=== PATIENT | male | born 1960 | race African-American/Black ===

== ENCOUNTER 2018-10-31 18:40 | Inpatient (IN) | payer MEDICARE, OTHER ==
[~2018-10-31] VITALS: Ht 170.2 cm; Wt 106.8 kg
[2018-10-31 19:37] LABS: HEMATOCRIT 43.8 % (42.0-54.0); HEMOGLOBIN 14.1 g/dL (13.5-17.5); MCH 23.7 pg (26.0-34.0); MCHC 32.2 g/dL (31.0-37.0); MCV 73.6 fL (80.0-100.0); MEAN PLATELET VOLUME 10.2 fL (7.4-10.4); PLATELET COUNT 200 10x3/uL (130-400); RBC 5.95 10x6/uL (4.20-6.10); RDW 14.8 % (11.5-14.5); WBC 9.4 10x3/uL (4.8-10.8)
[2018-10-31 19:51] LABS: INR 0.98 (0.85-1.17); PROTIME 12.5 SECONDS (11.6-15.0)
[2018-10-31 19:59] LABS: ALKALINE PHOSPHATASE 55 U/L (46-116); ALT (SGPT) 25 U/L (10-68); BILIRUBIN - TOTAL 0.23 mg/dL (0.2-1.3); CALC OSMOLALITY 285 mosm/kg (275-300); CALCIUM 8.9 mg/dL (8.5-10.1); CARBON DIOXIDE 20.3 mmol/L (21.0-32.0); CHLORIDE - SERUM 103 mmol/L (98-107); CREATININE - SERUM 1.5 mg/dL (0.6-1.3); GLUCOSE 144 mg/dL (74-106); POTASSIUM - SERUM 3.7 mmol/L (3.5-5.1); PROTEIN - SERUM 8.1 g/dL (6.4-8.2); SODIUM 141 mmol/L (136-145); UREA NITROGEN 19 mg/dL (7-18); eGFR NON AFRICAN AMERICAN 51 mL/min (90-120)
[2018-10-31 20:11] LABS: CKMB 0.6 U/L (0.0-3.6); CREATINE KINASE 179 UL (21-232); PRO BNP 112 pg/mL (0-125)
[2018-10-31 20:14] LABS: TROPONIN-I < 0.017 ng/mL (0.000-0.060)
[2018-10-31 20:42] LABS: EOSINOPHILS 2 % (0-7); LYMPHOCYTES 46 % (15-50); MONOCYTES 2 % (2-11); NEUTROPHILS 50 % (40-80); PLATELET ESTIMATE NORMAL
[2018-10-31 21:30] VITALS: BP 142/74
--- NOTE | 2018-10-31 21:50 | NUR ---
PT REPORTS HE DRANK ALL OF THE ORAL CONTRAST, RADIOLOGY CONTACTED AND INFORMED.
--- NOTE | 2018-10-31 22:19 | NUR ---
PT AMBULATED TO RESTROOM INDEPENDENTLY.
[2018-10-31 23:09] LABS: APPEARANCE CLEAR (CLEAR); BILIRUBIN NEGATIVE (NEGATIVE); COLOR YELLOW (YELLOW); GLUCOSE NEGATIVE (NEGATIVE); KETONE NEGATIVE (NEGATIVE); NITRITE NEGATIVE (NEGATIVE); PROTEIN NEGATIVE (NEGATIVE); SPECIFIC GRAVITY 1.005 (1.005-1.020); UROBILINOGEN NORMAL (NORMAL)
--- NOTE | 2018-11-01 00:18 | NUR ---
PT ARRIVED ON UNIT VIA WHEELCHAIR ESCORTED BY PASSENGER TIRE BUILDER AND SPOUSE. ORIENTED TO ROOM AND CALL LIGHT. BED ALARM IN USE. IV IN RIGHT AC SALINE LOCKED.
[2018-11-01] MEDS ORDERED: ZANTAC300 MG PO (00:19)
--- NOTE | 2018-11-01 00:30 | NUR ---
TELEMETRY PLACED ON PT PER ORDER. CURRENTLY READING 85 SR. PLACED O2 ON PT PER ORDER. WILL CONTINUE TO MONITOR FOR NEEDS.
[2018-11-01 01:28] VITALS: BP 197/97; Ht 170.2 cm; Wt 106.8 kg
--- NOTE | 2018-11-01 02:30 | NUR ---
ADMISSION ASSESSMENT AND HISTORY COMPLETE.
--- NOTE | 2018-11-01 02:31 | NUR ---
REPLACED ALL TELEMETRY PADS...PT RESTLESS AND DISLODGED.
[2018-11-01 04:00] VITALS: BP 151/73
--- NOTE | 2018-11-01 07:37 | NUR ---
PT DISORIENTED TO SITUATION. REPORTING HEADACHE 12/17, WILL MONITOR. IV TO RIGHT AC, SALINE LOCKED. BREATH SOUNDS CLEAR BILAT, 2L O2 PER NC. TELEMETRY IN PLACE. FAMILY AT BEDSIDE. BED LOW, CALL LIGHT IN REACH. NO OTHER NEEDS AT THIS TIME.
[2018-11-01 09:00] VITALS: BP 152/81
[2018-11-01 13:51] LABS: BASOPHILS 0.2 % (0-2); EOSINOPHILS 0.7 % (0-7); HEMATOCRIT 41.4 % (42.0-54.0); HEMOGLOBIN 13.5 g/dL (13.5-17.5); IMMATURE GRANULOCYTES 0.2 % (0-5); LYMPHOCYTES 27.4 % (15-50); MCH 23.9 pg (26.0-34.0); MCHC 32.6 g/dL (31.0-37.0); MCV 73.1 fL (80.0-100.0); MEAN PLATELET VOLUME 10.5 fL (7.4-10.4); MONOCYTES 4.2 % (2-11); NEUTROPHILS 67.3 % (40-80); PLATELET COUNT 203 10x3/uL (130-400); RBC 5.66 10x6/uL (4.20-6.10); RDW 14.9 % (11.5-14.5)
[2018-11-01 14:18] LABS: ALBUMIN 3.9 g/dL (3.4-5.0); ALKALINE PHOSPHATASE 50 U/L (46-116); ALT (SGPT) 31 U/L (10-68); BILIRUBIN - TOTAL 0.39 mg/dL (0.2-1.3); CALCIUM 8.8 mg/dL (8.5-10.1); CARBON DIOXIDE 22.6 mmol/L (21.0-32.0); CHLORIDE - SERUM 104 mmol/L (98-107); CKMB 1.1 U/L (0.0-3.6); CREATININE - SERUM 1.2 mg/dL (0.6-1.3); GLUCOSE 114 mg/dL (74-106); POTASSIUM - SERUM 3.7 mmol/L (3.5-5.1); PRO BNP 168 pg/mL (0-125); PROTEIN - SERUM 7.3 g/dL (6.4-8.2); SODIUM 141 mmol/L (136-145); TROPONIN-I < 0.017 ng/mL (0.000-0.060); eGFR NON AFRICAN AMERICAN 66 mL/min (90-120)
[2018-11-01 14:22] LABS: CALC OSMOLALITY 281 mosm/kg (275-300); CREATINE KINASE 542 UL (21-232); UREA NITROGEN 13 mg/dL (7-18)
[2018-11-01 14:44] VITALS: BP 163/76
[2018-11-01 18:20] VITALS: BP 176/75
[2018-11-01 18:55] LABS: CKMB 0.9 U/L (0.0-3.6); TROPONIN-I 0.021 ng/mL (0.000-0.060)
[2018-11-01 18:56] LABS: CREATINE KINASE 1122 UL (21-232)
--- NOTE | 2018-11-01 19:00 | NUR ---
BEDSIDE REPORT RECEIVED AND CARE OF PT ASSUMED. PT LYING IN SUPINE POSITION VISITING WITH SPOUSE. IV IN RIGHT AC SALINE LOCKED. TELEMETRY IN PLACE AND READING SR AT THIS ASSESSMENT. WILL MONITOR FOR NEEDS.
[2018-11-01 20:00] VITALS: BP 186/90
[2018-11-02] VITALS: BP 142/82
[2018-11-02 01:28] LABS: BASOPHILS 0.1 % (0-2); EOSINOPHILS 1.4 % (0-7); HEMATOCRIT 40.1 % (42.0-54.0); HEMOGLOBIN 13.1 g/dL (13.5-17.5); IMMATURE GRANULOCYTES 0.4 % (0-5); LYMPHOCYTES 37.1 % (15-50); MCH 23.9 pg (26.0-34.0); MCHC 32.7 g/dL (31.0-37.0); MEAN PLATELET VOLUME 10.5 fL (7.4-10.4); MONOCYTES 4.8 % (2-11); NEUTROPHILS 56.2 % (40-80); PLATELET COUNT 204 10x3/uL (130-400); RBC 5.49 10x6/uL (4.20-6.10); RDW 14.9 % (11.5-14.5); WBC 11.2 10x3/uL (4.8-10.8)
[2018-11-02 01:53] LABS: ALBUMIN 3.6 g/dL (3.4-5.0); ALKALINE PHOSPHATASE 49 U/L (46-116); ALT (SGPT) 28 U/L (10-68); BILIRUBIN - TOTAL 0.25 mg/dL (0.2-1.3); CALC OSMOLALITY 284 mosm/kg (275-300); CALCIUM 8.6 mg/dL (8.5-10.1); CARBON DIOXIDE 25.3 mmol/L (21.0-32.0); CHLORIDE - SERUM 105 mmol/L (98-107); CKMB 1.2 U/L (0.0-3.6); CREATININE - SERUM 1.2 mg/dL (0.6-1.3); GLUCOSE 124 mg/dL (74-106); POTASSIUM - SERUM 3.6 mmol/L (3.5-5.1); PROTEIN - SERUM 7.2 g/dL (6.4-8.2); SODIUM 142 mmol/L (136-145); UREA NITROGEN 15 mg/dL (7-18); eGFR NON AFRICAN AMERICAN 66 mL/min (90-120)
[2018-11-02 02:00] LABS: CREATINE KINASE 2400 UL (21-232)
--- NOTE | 2018-11-02 08:07 | NUR ---
PT IS RESTING IN BED WITH EYES CLOSED. RESPIRATIONS ARE EVEN AND UNLABORED. PT IS EASILY AROUSED WITH VERBAL STIMULATION. PT WITH O2 VIA NC @ 2L. PT DENIES PRESENCE OF PAIN. PT IS ORIENTED X 4. PT DENIES FURTHER NEEDS. BED IS IN THE LOWEST POSITION. CALL LIGHT AND BEDSIDE TABLE ARE WITHIN REACH. WILL CONT TO MONITOR.
[2018-11-02 09:41] VITALS: BP 152/86
[2018-11-02 14:08] VITALS: BP 154/87
[2018-11-02 18:25] VITALS: BP 169/98
--- NOTE | 2018-11-02 18:41 | NUR ---
PT IS RESTING IN BED WITH EYES OPEN. RESPIRATIONS ARE EVEN AND UNLABORED. PT IS C/O COUGHING AND SLIGHT PAIN THAT PT DESCRIBES CHRONIC. PAGE PLACED TO GEOMATICS PROFESSOR DR FOR ORDERS FOR MEDICATION TO HELP WITH SXS. PT INFORMED. BED IS IN THE LOWEST POSITION. CALL LIGHT AND BEDSIDE TABLE ARE WITHIN REACH. PT AND PT FAMILY MEMBER DENIES FURTHER NEEDS AT THIS TIME.
--- NOTE | 2018-11-02 19:00 | NUR ---
REPORT RECEIVED AND CARE OF PT ASSUMED. PT LYING IN LOW HELLER'S POSITION VISITING WITH FAMILY MEMBERS. O2 IN USE VIA NC AT 2L. TELEMETRY IN USE AND READING SB AT THIS ASSESSMENT. WILL MONITOR FOR NEEDS.
--- NOTE | 2018-11-02 19:50 | NUR ---
PT C/O FREQUENT ANNOYING COUGH AND PERSISTENT CHRONIC ACHES AND IS REQUESTING MEDICATIONS FOR RELIEF OF SXS. DR FRANCIS NOTIFIED OF PT REQUEST. PRDERS RECD ARE ROBITUSSIN WITH CODEIN 1-2 TSP Q6H PRN FOR THE COUGH AND NORCO 5MG PO [id number] PRN. WILL PLACE ORDERS AND NOTIFY SOIL CONSERVATION TEACHER NURSE.
--- NOTE | 2018-11-02 20:17 | NUR ---
GAVE NORCO 5 PO PER REQUEST FOR CHRONIC BACK PAIN, PER NEW ORDER. WILL MONITOR FOR EFFECTIVENESS.
--- NOTE | 2018-11-02 21:24 | NUR ---
GAVE ROBITISSIN W/ CODEINE COUGH MED PER REQUEST FOR COUGH, PER NEW ORDER. WILL MONITOR FOR EFFECTIVENESS.
[2018-11-03] VITALS: BP 170/84
[2018-11-03 04:00] VITALS: BP 155/86
[2018-11-03 07:27] LABS: BASOPHILS 0.2 % (0-2); EOSINOPHILS 1.9 % (0-7); HEMATOCRIT 40.5 % (42.0-54.0); IMMATURE GRANULOCYTES 0.4 % (0-5); LYMPHOCYTES 36.4 % (15-50); MCH 23.7 pg (26.0-34.0); MCHC 32.1 g/dL (31.0-37.0); MCV 73.9 fL (80.0-100.0); MEAN PLATELET VOLUME 10.2 fL (7.4-10.4); NEUTROPHILS 55.1 % (40-80); PLATELET COUNT 197 10x3/uL (130-400); RBC 5.48 10x6/uL (4.20-6.10); RDW 15.2 % (11.5-14.5); WBC 9.8 10x3/uL (4.8-10.8)
[2018-11-03 07:35] LABS: ALBUMIN 3.4 g/dL (3.4-5.0); ANION GAP 12.4 mmol/L (8-16); BILIRUBIN - TOTAL 0.31 mg/dL (0.2-1.3); CALCIUM 8.4 mg/dL (8.5-10.1); CARBON DIOXIDE 26.5 mmol/L (21.0-32.0); CREATININE - SERUM 1.1 mg/dL (0.6-1.3); POTASSIUM - SERUM 3.9 mmol/L (3.5-5.1)
[2018-11-03 08:23] VITALS: BP 144/75
--- NOTE | 2018-11-03 09:00 | NUR ---
PATIENT IN BED WATCHING TV WITH NO COMPLAINTS OR SIGNS OF DISTRESS. IV INTACT. FAMILY AT BEDSIDE. CALL LIGHT WITHIN REACH.
[2018-11-03] MEDS ORDERED: LISINOPRIL20 MG PO (12:01)
[2018-11-03 12:16] VITALS: BP 173/85
--- NOTE | 2018-11-03 13:09 | MORECARE ---
CASE MANAGEMENT DISCHARGE SUMMARY PATIENT: DARRYN TRAMMELL UNIT: [id number] ADM DATE: 11/02/18 AGE: 58 : [birth year] SEX: M ROOM/BED: D.2228 AUTHOR: DELBERT,DOC PHYSICIAN: REFERRING PHYSICIAN: ARABELLA FRIAS MD DATE OF SERVICE: 11/03/18 Discharge Plan Patient Name: DARRYN TRAMMELL Facility: [facility]:[place] : 1960 Planned Disposition: Home Anticipated Discharge Date: 11/03/18 Discharge Date: Expected LOS: 1 Initial Reviewer: [email or web address] Initial Review Date: 11/03/2018 Generated: 11/03/18 2:09 pm Comments DCP- Discharge Planning Updated by [email or web address]: Ila Astorga on 11/03/18 12:[address] Patient Name: DARRYN TRAMMELL Admission Status: ER Accout number: [id number] Admission Date: 11-02-2018 : 1960 Admission Diagnosis: Attending: ARABELLA FRIAS Current LOS: 1 Anticipated DC Date: 11-03-2018 Planned Disposition: Home Primary Insurance: MEDICARE A & B Discharge Planning Comments: CM met with patient to discuss discharge planning, his is in the room. He lives with his . He is independent with all ADL's and AIDL's. His will take him home today on discharge. He declines need for home health or DME. He states he has a cane and walker but does not use them. No needs identified. CM will continue to follow and assist with discharge planning/needs. Instructional Resource Teacher: Ila Astorga DCPIA - Discharge Planning Initial Assessment Updated by [email or web address]: Ila Astorga on 11/03/18 1:05 pm * Is the patient Alert and Oriented? Yes * How many steps to enter\exit or inside your home? 1flight/1f * PCP Dr Shabbir Bass - [place] Dr. Luis at [facility] in [place] * Pharmacy [facility] * Preadmission Environment Home with Family * ADLs Independent * Equipment Cane Walker * List name and contact numbers for known caregivers / representatives who currently or will assist patient after discharge: Valerie - - [phone] * Verbal permission to speak to the caregivers and representatives has been obtained from the patient. Yes * Community resources currently utilized None * Additional services required to return to the preadmission environment? No * Can the patient safely return to the preadmission environment? Yes * Has this patient been hospitalized within the prior 30 days at any hospital? No Patient Name: DARRYN TRAMMELL Page [phone] at 1309 All edits/amendments must be made on the electronic document DICTATION DATE: 11/03/18 1309 CERTIFIED CREDIT COUNSELOR: LIMA 11/03/18 1309 RPT#: [id number] DC DATE: STATUS: ADM IN [facility] [address] [place] [address] END OF REPORT
--- NOTE | 2018-11-03 13:17 | NUR ---
PATIENT RECIEVED DISCHARGE INSTRUCTIONS. VERBALIZED UNDERSTANDING. NO QUESTIONS AT THIS TIME. IV REMOVED WITH CATH TIP INTACT. TELE TAKEN BACK TO MED II. STATED DID NOT WANT A WC FOR DC. STATED HE WANTED TO WALK. O2 SATS 99% ON RA WITH PULSE OF 96. EXPLAINED TO GO BY [facility] AND COMMERCIAL DEVELOPMENT MANAGER PRESCRIPTIONS. VERBALIZED UNDERSTANDING. AMBULATED DOWN TO FRONT DOORS WITH PERSONAL BELONGINGS WITH AT THIS TIME.
--- NOTE | 2018-11-04 11:18 | EC ---
PATIENT:DARRYN TRAMMELL DATE OF SERVICE: 10/31/18 SEX: M MEDICAL RECORD: [id number] DATE OF : [birth year] LOCATION:[place] AGE OF PATIENT: 58 ADMISSION DATE: 11/02/18 REFERRING PHYSICIAN: INTERPRETING PHYSICIAN: POOJA MCBRIDE MD ECHOCARDIOGRAM REPORT ECHO CHARGES 4 ECHO COMPLETE Date: 11/02/18 CLINICAL DIAGNOSIS: CHEST PAIN ECHOCARDIOGRAPHIC MEASUREMENTS (adult normal given) AC root (d.<3.7cm) 3.9 cm LV Septum d (<1.2 cm> 1.5 cm Valve Excursion 1.7 cm LV Septum (systole) 1.7 cm Left Atria (s.<4.0cm> 3.8 cm LVPW d(<1.2cm) 1.6 cm RV (d.<2.3cm) 3.4 cm LVPW (sytole) 1.8 cm LV diastole(<5.6CM) 4.5 cm MV E-F(>70mm/sec) cm LV systole 3.4 cm LVOT Diameter 1.7 cm MV exc.(>10mm) 2.4 cm Est.ejection fraction (50-75%) % DOPPLER: LVIT cm/sec A 89.0 cm/sec E 106 cm/sec LA cm/sec RVSP 22 mmHg LVOT 93 cm/sec AOP1/2T m/s Asc. Ao 172 cm/sec RVOT 102 cm/sec RA cm/sec PA 156 cm/sec AV Gradient Peak 11.77mmHg AV Mean 6.59 mmHg AV Area 1.6 cm MV Gradient Peak 5.52 mmHg MV Mean 1.77 mmHg MV Area cm COMMENTS: Folder Seamer Automatic: Ree BURNHAM Stumper Feller: 1 Dr. Mcbride TAPE# PACS Pericardial Effusion N DATE OF SERVICE: 11/02/2018 FINDINGS: 1. Left ventricular chamber size is within normal limits. Left ventricular systolic function is normal. Overall ejection fraction is estimated at 55%. 2. Left atrium, right atrium, and right ventricle chamber sizes are within normal limit. 3. Valvular structures have normal structure and motion. 4. Doppler interrogation reveals only trace mitral regurgitation. No other valvular insufficiency or stenosis. Pulmonary systolic pressure is normal, ECHOCARDIOGRAM REPORT [id number] DARRYN TRAMMELL estimated at 22 mmHg. 5. No evidence of pericardial effusion or left ventricular thrombus. TRANSINT:[id number] Voice Confirmation ID: [id number] DOCUMENT ID: [id number] POOJA MCBRIDE MD at 1118 CC: [id number] DICTATION DATE: 11/02/18 1317 NP: 11/02/18 1346 DIS IN 11/03/18 [facility] [address] [id number]
--- NOTE | 2018-11-04 11:18 | CN ---
PATIENT NAME:DARRYN TRAMMELL MEDICAL RECORD: [id number] : [birth year] LOCATION:D.MS [id number] ADMIT DATE: 11/02/18 ACCOUNT: [id number] CONSULTING PHYSICIAN: POOJA BRITO MD REFERRING PHYSICIAN: ARABELLA FRIAS MD DATE OF CONSULTATION: 11/01/2018 DIAGNOSES: 1. Shortness of breath. 2. Dizziness, near syncope. HISTORY OF PRESENT ILLNESS: Mr. Trammell had an episode yesterday right after blowing his nose that he felt acutely near syncopal and dizzy. He did not have any chest pain or chest discomfort. He has had shortness of breath that has been progressive over the past few weeks. No cardiac history. PHYSICAL EXAMINATION: GENERAL APPEARANCE: Well-nourished, well-developed, appears stated age. Level of distress, comfortable. PSYCHIATRIC: Mental status, alert, normal affect. Orientation, oriented to time, place and person. EYES: Lids and conjunctiva, noninjected. No discharge, no pallor. ENT: Lips, teeth, gums, normal dentition. Oropharynx, no cyanosis, no pallor. NECK: Carotid arteries, bilateral normal upstroke, no bruits, no thrills. JUGULAR VEINS: No jugular venous pressure or distention. CERVICAL LYMPH NODES: Nontender, nonenlarged. THYROID: Not enlarged. Nontender. No nodules. LUNGS: Respiratory effort, unlabored. CHEST: Normal curvature. No thoracic deformity. No chest wall tenderness. Percussion, resonant. Auscultation, clear. No wheezes, no rales, no rhonchi. CARDIOVASCULAR: Precordial exam, nondisplaced. No heaves or pericardial thrills. Rate and rhythm, regular. Heart sounds, normal S1, normal S2. No S3, no gallop, no rub. Systolic murmur, not heard. Diastolic murmur, not heard. EXTREMITIES: No cyanosis, no edema. Peripheral pulses, full and equal in all extremities, except as noted. No bruits appreciated. ABDOMEN: Soft, nondistended. Normal aorta. No bruit. Nontender. No masses. Liver, nontender, no hepatomegaly. Spleen, nontender, no splenomegaly. MUSCULOSKELETAL: No joint tenderness. No joint swelling. No erythema. NEUROLOGICAL: Normal gait, normal strength, normal tone. SKIN: Warm and dry. OVERALL IMPRESSION: Shortness of breath, unsure etiology. His troponin is normal. His EKG is with no ST-T abnormalities. He has had no dysrhythmias. We got an echocardiogram at this point, no other cardiac workup or treatment should be necessary. TRANSINT:[id number] Voice Confirmation ID: [id number] DOCUMENT ID: [id number] CONSULT REPORT [id number] DARRYN TRAMMELL JEFFREY MD at 1118 CC: [id number] DICTATION DATE: 11/01/18 1432 COOK APPRENTICE PASTRY: 11/01/18 1531 DIS IN 11/03/18 [facility] [address] [place] [address]
--- NOTE | 2018-11-05 17:05 | MORECARE ---
CASE MANAGEMENT DISCHARGE SUMMARY PATIENT: DARRYN TRAMMELL UNIT: [id number] ADM DATE: 11/02/18 AGE: 58 : 64 SEX: M ROOM/BED: D.2228 AUTHOR: DELBERT,DOC PHYSICIAN: REFERRING PHYSICIAN: ARABELLA FRIAS MD DATE OF SERVICE: 11/05/18 Discharge Plan Patient Name: DARRYN TRAMMELL Facility: [facility]:[place] : 1960 Planned Disposition: Home Anticipated Discharge Date: 11/03/18 Discharge Date: 11/03/2018 Expected LOS: 1 Initial Reviewer: [email or web address] Initial Review Date: 11/03/2018 Generated: 11/05/18 6:05 pm Comments DCP- Discharge Planning Updated by [email or web address]: Ila Astorga on 11/03/18 12:[address] Patient Name: DARRYN TRAMMELL Admission Status: ER Accout number: [id number] Admission Date: 11-02-2018 : 1960 Admission Diagnosis: Attending: ARABELLA FRIAS Current LOS: 1 Anticipated DC Date: 11-03-2018 Planned Disposition: Home Primary Insurance: MEDICARE A & B Discharge Planning Comments: CM met with patient to discuss discharge planning, his is in the room. He lives with his . He is independent with all ADL's and AIDL's. His will take him home today on discharge. He declines need for home health or DME. He states he has a cane and walker but does not use them. No needs identified. CM will continue to follow and assist with discharge planning/needs. Custodial Maintenance Worker: Ila Astorga DCPIA - Discharge Planning Initial Assessment Updated by [email or web address]: Ila Astorga on 11/03/18 1:05 pm * Is the patient Alert and Oriented? Yes * How many steps to enter\exit or inside your home? 1flight/1f * PCP Dr Shabbir Bass - [place] Dr. Luis at [facility] in [place] * [facility] * Preadmission Environment Home with Family * ADLs Independent * Equipment Cane Walker * List name and contact numbers for known caregivers / representatives who currently or will assist patient after discharge: Valerie - - [phone] * Verbal permission to speak to the caregivers and representatives has been obtained from the patient. Yes * Community resources currently utilized None * Additional services required to return to the preadmission environment? No * Can the patient safely return to the preadmission environment? Yes * Has this patient been hospitalized within the prior 30 days at any hospital? No Last DP export: 11/03/18 12:09 p Patient Name: DARRYN TRAMMELL Page [phone] at 1705 All edits/amendments must be made on the electronic document DICTATION DATE: 11/05/181704 FLOUR BLENDER: LIMA 11/05/181704 RPT#: [id number] DC DATE:11/03/18 STATUS: DIS IN [facility] [address] [place] [address] END OF REPORT
== END 2018-11-03 13:32 | disposition home or self-care (01) | DRG 312 ==
LOC: D.ER 18:40 → D.M2 23:34 → D.MS 23:34 → OBSVTIME 23:34 → D.MS 23:52
PROVIDERS: Family Medicine; ADMIT Family Medicine
DX: R55 Syncope and collapse (principal); I10 Essential (primary) hypertension; E66.01 Morbid (severe) obesity due to excess calories; Z68.36 Body mass index [BMI] 36.0-36.9, adult; R07.9 Chest pain, unspecified; R00.2 Palpitations

== ENCOUNTER → 2018-11-19 09:42 | Outpatient (CLI) | payer OTHER, MEDICARE ==
[2018-11-01 01:28] VITALS: BMI 36.9
--- NOTE | ~2018-11-19 | ST ---
PATIENT:DARRYN TRAMMELL MEDICAL RECORD: [id number] SEX: M LOCATION:[facility] ORDER #: ADMISSION DATE: 11/19/18 AGE OF PATIENT: 58 REFERRING PHYSICIAN: INTERPRETING PHYSICIAN: POOJA BRITO MD DATE OF SERVICE: 11/19/2018 PROCEDURE: Nuclear stress test. INDICATION: Angina, shortness of breath, hypertension. The patient was exercised on standard Lexiscan protocol with 31 mCi of sestamibi injected at peak stress, 10 mCi was used previously for rest images. FINDINGS: Gated SPECT reveals a preserved ejection fraction of 56% with good wall motion and thickening and brightening throughout all segments. SPECT imaging Cardiolite was used as myocardial fusion agent. There is reversibility inferiorly. This includes the basal, mid, apical inferior segments. The reversibility is moderate. The amount of myocardium involved is moderate. OVERALL IMPRESSION: 1. This is an abnormal nuclear stress test, reversibility inferiorly. 2. Gated SPECT reveals a preserved ejection fraction of greater than 50%. In this patient with ongoing symptomatology, the current scan does suggest the presence of hemodynamically significant coronary artery disease. We would proceed with coronary angiography as followup study. TRANSINT:[id number] Voice Confirmation ID: [id number] DOCUMENT ID: [id number] POOJA BRITO MD CC: MARII DAVIDSON DO [id number] DICTATION DATE: 11/21/18 1608 LODE MINER: 11/22/18 0917 [facility] CLI 11/19/[address] [address]
[~2018-11-19 09:42] MED LIST: LISINOPRIL20 MG PO; ZANTAC300 MG PO
== END | disposition home or self-care (01) ==
LOC: D.HCCARDIO 09:42
PROVIDERS: ATTEND Internal Medicine Interventional Cardiology
DX: I20.9 Angina pectoris, unspecified (principal)